=== PATIENT | male | born 1945 | race Caucasian/White ===

== ENCOUNTER → 2021-11-20 14:44 | Outpatient (BNVA) | payer BC, SELFPAY | PROVIDERS: PCP Internal Medicine; Visit Provider Internal Medicine | DX: Z85.46 Personal history of malignant neoplasm of prostate (principal); E78.00 Pure hypercholesterolemia, unspecified | CPT/HCPCS: 80061; 83036; 84153; 84443; 85651; 86140 ==

== ENCOUNTER → 2021-11-28 16:57 | Outpatient (BNVA) | payer BC, SELFPAY | PROVIDERS: PCP Internal Medicine; Visit Provider Internal Medicine | DX: E78.00 Pure hypercholesterolemia, unspecified (principal); Z85.46 Personal history of malignant neoplasm of prostate; R42 Dizziness and giddiness; E11.9 Type 2 diabetes mellitus without complications; M79.10 Myalgia, unspecified site | CPT/HCPCS: 85651; 86140 ==

== ENCOUNTER → 2022-05-13 10:40 | Outpatient (BNVA) | payer MEDICARE, SELFPAY | PROVIDERS: PCP Internal Medicine; Visit Provider Registered Nurse Neonatal Intensive Care | DX: M79.10 Myalgia, unspecified site (principal); M25.511 Pain in right shoulder | CPT/HCPCS: 73030 ==

== ENCOUNTER → 2022-06-02 16:24 | Outpatient (BNVA) | payer MEDICARE, SELFPAY | PROVIDERS: PCP Internal Medicine; Visit Provider Internal Medicine | DX: F41.9 Anxiety disorder, unspecified (principal); M79.10 Myalgia, unspecified site; Z85.46 Personal history of malignant neoplasm of prostate; M10.9 Gout, unspecified; E11.9 Type 2 diabetes mellitus without complications; M75.91 Shoulder lesion, unspecified, right shoulder | CPT/HCPCS: 84153 ==

== ENCOUNTER 2022-10-08 12:54 | Outpatient (CLI) | payer OTHER, SELFPAY ==
--- NOTE | 2022-10-08 13:14 | USCV_ITS ---
Juan Miguel Quinteros Age: 76 Gender: M : 1945 Exam Date: 10/08/2022 13:56 Ordering Phys: Romulo Butler XX Technologist: ZE Exam [place] [facility] [place] Indication: MURMUR BP: 146 / 86 HR: 48 Rhythm: Sinus Technical Quality: Adequate MEASUREMENTS (Male / Female) Normal Values 2D ECHO LVOT Diameter 2.0 cm LV Ejection Fraction MOD 2C 51.2 % LV Ejection Fraction 2C AL 50.1 % LA Diameter 4.7 cm LA Width 4.2 cm LA Height 5.8 cm RA Width 3.9 cm RA Height 5.0 cm Aorta at Sinotubular Diameter 3.1 cm IVC Diameter 1.6 cm M-MODE Aortic Annulus Diameter 3.3 cm LA Ao Ratio MM 1.5 MV E Point Septal Separation 0.9 cm DOPPLER AV Peak Velocity 239.3 cm/s LVOT Peak Velocity 86.0 cm/s AV Area Cont Eq vti 1.2 cm squared AV Area Cont Eq pk 1.1 cm squared MV Peak Velocity 119.0 cm/s MV Area PHT 2.3 cm squared Mitral E to A Ratio 0.7 MV E' Velocity 42.6 cm/s Mitral E to MV E' Ratio 12.7 Mitral E to LV E' Lateral Ratio 12.2 Mitral E to LV E' Septal Ratio 13.1 TR Peak Velocity 194.3 cm/s TR Peak Gradient 15.1 mmHg TR Mean Velocity 150.4 cm/s TR Mean Gradient 9.6 mmHg TR Velocity Time Integral 58.9 cm TV Peak E Velocity 41.0 cm/s Right Atrial Pressure 3.0 mmHg Pulmonary Artery Systolic Pressu 18.1 mmHg PV Peak Velocity 120.0 cm/s RV Acceleration Time 0.2 s RV Ejection Time 0.3 s RV AcT/ET 0.6 FINDINGS Left Ventricle Left ventricle is normal in size. LV systolic function is normal with EF of 50 to 55%. No regional wall motion abnormalities are seen. Grade 1 diastolic dysfunction Right Ventricle Normal in size and function Right Atrium Normal in size Left Atrium Dilated Mitral Valve Structurally normal mitral valve. Trace mitral regurgitation. Aortic Valve Aortic valve is thickened. Mild aortic regurgitation. Mild aortic stenosis with aortic valve area of 1.15 cm squared with mean gradient of 13.6 mmHg. Tricuspid Valve Mild tricuspid regurgitation. Pulmonary artery systolic pressure is normal. Pulmonic Valve Not well-visualized Pericardium Normal Aorta Normal in size IVC Appears to be normal CONCLUSIONS LV systolic function is normal with EF 50 to 55% Grade 1 diastolic dysfunction Left atrial dilation Trace mitral regurgitation Aortic valve is thickened. Mild aortic regurgitation Mild aortic stenosis with aortic valve area of 1.15 cm squared and mean gradient of 13.6 mmHg. Mild tricuspid regurgitation No comparison studies are with Bobby Padilla MD (Electronically Signed) Final Date: 11 October 2022 20:35 S
== END 2022-10-08 12:55 | disposition home or self-care (01) ==
LOC: RAD 13:03
PROVIDERS: PCP Internal Medicine; Visit Provider Family Medicine
DX: I25.10 Atherosclerotic heart disease of native coronary artery without angina pectoris (principal); R01.1 Cardiac murmur, unspecified
CPT/HCPCS: 93306

== ENCOUNTER 2024-02-12 13:39 | Emergency (ER) | payer MEDICARE, SELFPAY ==
[2024-02-12 13:46] VITALS: BP 146/94; PULSE 93; RESP 14; TEMP 37; O2SAT 96
--- NOTE | 2024-02-12 13:57 | ECG_ITS ---
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 Measurements Intervals [place] Rate: 84 P: -6 NH: 152 QRS: -28 QRSD: 104 T: 60 QT: 363 QTc: 429 Interpretive Statements SINUS RHYTHM MODERATE VOLTAGE CRITERIA FOR LVH, CONSIDER NORMAL VARIANT [MEETS CRITERIA IN ONE OF: R(aVL), S(V1), R(V5), R(V5/V6)+S(V1)] INFERIOR MYOCARDIAL INFARCTION , PROBABLY OLD [40+ ms Q WAVE AND/OR ST/T ABNORMALITY IN II/aVF] No previous ECG available for comparison Electronically Signed On 02-12-2024 20:25:44 CDT by Bobby Padilla M.D. [id number]
--- NOTE | 2024-02-12 13:57 | XRR_ITS ---
PROCEDURE INFORMATION: Exam: XR Chest Exam date and time: 02/12/2024 2:28 PM Age: 78 years old Clinical indication: Other: AMS; Additional info: Psych TECHNIQUE: Imaging protocol: Radiologic exam of the chest. Views: 1 view. COMPARISON: CR XR shoulder RT min 2V* [id number] 05/13/2022 10:45 AM FINDINGS: Lungs: No focal consolidation. Pleural spaces: No pleural effusion. No pneumothorax. Heart/Mediastinum: No cardiomegaly. Bones/joints: No acute findings. XR/XR chest 1V portable [id number] IMPRESSION: No acute findings.
--- NOTE | 2024-02-12 14:16 | ED.C_ITS ---
HPI - Psych 2 General: Chief Complaint: Psychiatric Symptoms Stated Complaint: mhe Time Seen by Provider: 02/12/24 13:45 Source: patient and police Limitations: no limitations History of Present Illness: 78-year-old male is brought in by police under 96-hour hold. Per police patient had drove off from home yesterday and got lost and fell asleep at a stoplight. He had some 6 signs of possible dementia and some confusion at times. Patient here now was awake alert he answers all my questions appropriately knows the year he knows the president he states he does have some memory loss and confusion at times he denies any suicidal or homicidal thoughts. Associated symptoms: Deny depression Review of Systems 2 Const: Denies: fever(s), chills, body aches or change in appetite ENMT: Denies: throat pain or dental pain Card: Denies: chest pain Resp: Denies: dyspnea GI: Denies: abdominal pain, nausea, vomiting or diarrhea Musc: Denies: neck pain or back pain Skin/Breast: Denies: rash Neuro: Reports: confusion; Denies: headache(s) Psych: Denies: depression PFSH ED 2 PFSH: Medical History Mild aortic stenosis Carotid stenosis CAD (coronary artery disease) High cholesterol HTN (hypertension) with goal to be determined H/O prostate cancer Diabetes type 2, controlled Surgical History H/O cardiac catheterization WITH TWO STENTS Social History Smoking and tobacco/nicotine status: former use of tobacco/nicotine Physical Exam 2 Const: COMMON NORMALS: no acute distress, patient oriented x3 and healthy appearing HENMT: COMMON NORMALS: normocephalic and atraumatic HEAD & SCALP: n ormocephalic and atraumatic Neck/C-Spine: COMMON NORMALS: full ROM and supple Chest: COMMONS NORMALS: normal inspection of the chest and normal palpation of entire chest wall Resp: COMMON NORMALS: normal respiratory effort, No retractions, No use of accessory muscles and clear to auscultation bilaterally AUSCULTATION: clear to auscultation bilaterally Cardio: COMMON NORMALS: regular rate, regular rhythm and No murmurs present (Cardio) RATE: regular rate RHYTHM: regular rhythm GI: COMMON NORMALS: Normal to inspection, nondistended, normoactive bowel sounds present, Soft to palpation, non-tender and no masses PALPATION: Yes Soft to palpation Extremity: COMMON NORMALS: normal to inspection and full ROM Neuro: COMMON NORMALS: patient oriented x3, moves all extremities and no focal motor deficits Psych: COMMON NORMALS: mental status grossly normal Skin: COMMON NORMALS: no rashes or lesions noted and no wounds GENERAL SKIN EXAM: no rashes or lesions noted Course 2 Vital Signs: Vital signs: Vital Signs Temperature 98.6 F 02/12/24 13:46 Pulse Rate 93 02/12/24 13:46 Respiratory Rate 14 02/12/24 13:46 Blood Pressure 146/94 02/12/24 13:46 Pulse Oximetry 96 02/12/24 13:46 Oxygen Delivery Me thod Room Air 02/12/24 13:46 MDM - Psych Medical Decision Making Patient presented here on a 6-hour hold hold family is concerned with him being confused at times while driving he does admit that he gets lost at times patient is completely oriented here answering all my questions appropriately denies SI or HI is no signs acute psychosis I had him evaluated by psychiatrist Dr. Jones who also agrees that he does not meet inpatient criteria did resend the 96 and will discharge she is follow-up with PCP return if worsening. Medical Records I reviewed the patient's medical records. Lab Data I reviewed the patient's lab results. 02/12/24 14:48 02/12/24 14:48 Radiology Impressions Chest X-Ray 02/12/24 13:57 IMPRESSION: No acute findings. Laboratory Results WBC 6.99 10^3/uL (3.29-11.43) 02/12/24 14:48 RBC 4.46 10^6/uL (3.85-5.65) 02/12/24 14:48 Hgb 14.00 g/dL (11.27-16.99) 02/12/24 14:48 Hct 43.3 % (37-53) 02/12/24 14:48 MCV 97.1 fl (82-101) 02/12/24 14:48 MCH 31.4 pg (27-33) 02/12/24 14:48 MCHC 32.3 g/dL (30-55) 02/12/24 14:48 RDW 12.6 % (12.1-15.1) 02/12/24 14:48 Plt Count 175 10^3/cmm (157-399) 02/12/24 14:48 MPV 9.6 fL (7.4-10.4) 02/12/24 14:48 Neut % (Auto) 72.8 % 02/12/24 14:48 Lymph % (Auto) 15.9 % 02/12/24 14:48 [place] % (Auto) 9.2 % 02/12/24 14:48 Eos % (Auto) 1.7 % 02/12/24 14:48 Baso % (Auto) 0.3 % 02/12/24 14:48 Neut # (Auto) 5.09 10^3/uL (1.8-7.7) 02/12/24 14:48 Lymph # (Auto) 1.1 10^3/uL (0.8-4.8) 02/12/24 14:48 [place] # (Auto) 0.6 10^3/uL (0.2-0.9) 02/12/24 14:48 Eos # (Auto) 0.1 10^3/uL (0.0-0.8) 02/12/24 14:48 Baso # (Auto) 0.0 10^3/uL (0.0-0.1) 02/12/24 14:48 Nucleated RBC % (auto) 0 % 02/12/24 14:48 Nucleated RBCs # 0.0 /100WBC 02/12/24 14:48 Sodium 141 mmol/L (136-145) 02/12/24 14:48 Potassium 4.1 mmol/L (3.5-5.1) 02/12/24 14:48 Chloride 107 mmol/L (98-107) 02/12/24 14:48 Carbon Dioxide 24 mmol/L (22-29) 02/12/24 14:48 Anion Gap 14.1 (5-19) 02/12/24 14:48 BUN 24 mg/dL (8-23) H 02/12/24 14:48 Creatinine 1.1 mg/dL (0.7-1.2) 02/12/24 14:48 GFR Calculation Not Reportable 02/12/24 14:48 Glucose 115 mg/dL (65-115) 02/12/24 14:48 Calculated Osmolality 297 mOsm/kg (285-295) H 02/12/24 14:48 Calcium 8.8 mg/dL (8.5-10.5) 02/12/24 14:48 Total Bilirubin 0.9 mg/dL (0.15-1.2) 02/12/24 14:48 AST 17 U/L (0-40) 02/12/24 14:48 ALT 13 U/L (0-41) 02/12/24 14:48 Alkaline Phosphatase 64 U/L (40-130) 02/12/24 14:48 Total Protein 6.5 g/dL (6.6-8.7) L 02/12/24 14:48 Albumin 4.1 g/dL (3.5-5.2) 02/12/24 14:48 Globulin 2.4 g/dL (1.3-4.6) 02/12/24 14:48 TSH 1.08 uIU/mL (0.27-4.20) 02/12/24 14:48 Urine Color Yellow (Yellow) 02/12/24 14:35 Urine Appearance Clear (CLEAR) 02/12/24 14:35 Urine pH 5 (5-7) 02/12/24 14:35 Ur Specific [place] 1.020 (1.005-1.030) 02/12/24 14:35 Urine Protein Neg (Negative) 02/12/24 14:35 Urine Glucose (UA) Norm (Normal) 02/12/24 14:35 Urine Ketones 1+ (Negative) H 02/12/24 14:35 Urine Blood Neg (Negative) 02/12/24 14:35 Urine Nitrate Negative (Negative) 02/12/24 14:35 Urine Bilirubin Neg (Negative) 02/12/24 14:35 Urine Urobilinogen Norm mg/dL (Negative) 02/12/24 14:35 Ur Leukocyte Esterase Negative (Negative) 02/12/24 14:35 Salicylates < 0.3 mg/dL (3-10) L 02/12/24 14:48 Urine Opiates Screen Negative ng/mL (Negative) 02/12/24 14:35 Acetaminophen < 5.0 ug/mL (10-30) L 02/12/24 14:48 Ur Barbiturates Screen Negative ng/mL (Negative) 02/12/24 14:35 Ur Phencyclidine Scrn Negative ng/mL (Negative) 02/12/24 14:35 Ur Amphetamines Screen Negative ng/mL (Negative) 02/12/24 14:35 U Benzodiazepines Scrn Negative ng/mL (Negative) 02/12/24 14:35 Urine Cocaine Screen Negative ng/mL (Negative) 02/12/24 14:35 U Marijuana (THC) Screen Negative ng/mL (Negative) 02/12/24 14:35 Ethyl Alcohol < 10 mg/dL (0-10) 02/12/24 14:48 Influenza Type A Ag negative (Negative) 02/12/24 15:10 Influenza Type B Ag negative (Negative) 02/12/24 15:10 RSV Antigen Negative (Negative) 02/12/24 15:10 SARS-CoV-2 Ag (Rapid) negative (Negative) 02/12/24 15:10 No radiology studies performed this visit Discharge Plan Discharge Patient Disposition: Home Clinical Impression: Confusion Condition: Stable Prescriptions: No Action allopurinol 100 mg tablet 100 mg PO DAILY Qty: 90 3RF hempvana topical celecoxib 200 mg capsule 200 mg PO BID Qty: 60 3RF losartan 25 mg tablet 100 mg PO DAILY Discharge Orders: Discharge ED (Routine); Ordered 02/12/24 Ordered By: Tia Newell Discharge Diet: Advance as tolerated Discharge Activity: Resume usual activity Patient Instructions: Confusion Activity Restrictions/Additional Instructions: follow up with pcp Coding Level of Care Code ED Supervisor Of Instruction for Julio Calderon
[2024-02-12 14:53] LABS: Basophils % 0.3 %; Eosinophils # 0.1 10^3/uL (0.0-0.8); Eosinophils % 1.7 %; Hematocrit 43.3 % (37-53); Lymphocytes # 1.1 10^3/uL (0.8-4.8); Lymphocytes % 15.9 %; Mean Corpuscular HGB Conc 32.3 g/dL (30-55); Mean Corpuscular Hemoglobin 31.4 pg (27-33); Mean Corpuscular Volume 97.1 fl (82-101); Mean Platelet Volume 9.6 fL (7.4-10.4); Monocytes # 0.6 10^3/uL (0.2-0.9); Monocytes % 9.2 %; Neutrophils # 5.09 10^3/uL (1.8-7.7); Neutrophils % 72.8 %; Nucleated Red Blood Cells % 0 %; Platelet Count 175 10^3/cmm (157-399); Red Blood Count 4.46 10^6/uL (3.85-5.65); Red Cell Distribution Width 12.6 % (12.1-15.1); White Blood Count 6.99 10^3/uL (3.29-11.43)
[2024-02-12 14:58] LABS: Add Urine Microscopic? NO; Charge for UA Resulting for Rev
[2024-02-12 15:16] LABS: Bilirubin Urine Neg (Negative); Blood Urine Neg (Negative); Glucose Urine UA Norm (Normal); Ketones Urine 1+ (Negative); Leukocyte Esterase Urine Negative (Negative); Nitrate Urine Negative (Negative); Protein Urine Neg (Negative); Urine Appearance Clear (CLEAR); Urine Color Yellow (Yellow); Urobilinogen Urine Norm (Negative); pH Urine 5 (5-7)
[2024-02-12 15:17] LABS: Amphetamines Screen Urine Negative (Negative); Barbiturates Screen Urine Negative (Negative); Benzodiazepines Screen Urine Negative (Negative); Cocaine Screen Urine Negative (Negative); Opiate Screen Urine Negative (Negative); PCP Screen Urine Negative (Negative); THC Screen Urine Negative (Negative)
[2024-02-12 15:25] LABS: Acetaminophen < 5.0 ug/mL (10-30); Alanine Aminotransferase 13 U/L (0-41); Albumin Level 4.1 g/dL (3.5-5.2); Alcohol Level < 10 mg/dL (0-10); Alkaline Phosphatase 64 U/L (40-130); Anion Gap 14.1 (5-19); Aspartate Amino Transferase 17 U/L (0-40); Blood Urea Nitrogen 24 mg/dL (8-23); Calcium 8.8 mg/dL (8.5-10.5); Carbon Dioxide 24 mmol/L (22-29); Chloride 107 mmol/L (98-107); Globulin 2.4 g/dL (1.3-4.6); Glucose 115 mg/dL (65-115); Osmolality Calculated 297 mOsm/kg (285-295); Potassium 4.1 mmol/L (3.5-5.1); Salicylate < 0.3 mg/dL (3-10); Sodium 141 mmol/L (136-145); Thyroid Stimulating Hormone 1.08 uIU/mL (0.27-4.20); Total Bilirubin 0.9 mg/dL (0.15-1.2); Total Protein 6.5 g/dL (6.6-8.7)
[2024-02-12 15:35] LABS: Influenza A by IFA negative (Negative); Influenza B by IFA negative (Negative); SARS Covid-2 Antigen negative (Negative)
[2024-02-12 15:40] LABS: RSV Transfer Patient (ED) Negative (Negative)
--- NOTE | 2024-02-12 17:00 | P.NPUCON_ITS ---
Psych Consult HPI History of Present Illness Juan Miguel De La O is a 78 year old male Meds Home Medications and Allergies Home Medications Medication Instructions Recorded Confirmed Last Taken Type allopurinol 100 mg tablet 100 mg PO DAILY #90 tabs 11/20/21 08/07/23 Unknown Rx hempvana topical 05/01/22 08/07/23 Unknown History celecoxib 200 mg capsule 200 mg PO BID #60 caps 06/02/22 08/07/23 Unknown Rx losartan 25 mg tablet 100 mg PO DAILY 01/28/23 08/07/23 Unknown History Allergies Allergy/AdvReac Type Severity Reaction Status Date / Time Sulfa (Sulfonamide Allergy sulfa Verified 02/12/24 13:52 Antibiotics) PFSH NPU 2 PFSH: Medical History Mild aortic stenosis Carotid stenosis CAD (coronary artery disease) High cholesterol HTN (hypertension) with goal to be determined H/O prostate cancer Diabetes type 2, controlled Surgical History H/O cardiac catheterization WITH TWO STENTS Social History Smoking and tobacco/nicotine status: former use of tobacco/nicotine Vitals/I&O/Wt Last Vital Signs Temp 98.6 F 02/12/24 13:46 Pulse 93 02/12/24 13:46 Resp 14 02/12/24 13:46 BP 146/94 02/12/24 13:46 Pulse Ox 96 02/12/24 13:46 O2 Del Method Room Air 02/12/24 13:46 Weight last 48 hrs Weight 88.451 kg Data NPU 02/12/24 14:48 02/12/24 14:48 Attestations NPU 2 Medical Necessity Statement*: N/A. See primary team note for medical necessity but agree with discharge to home. Coding Level of Care Code Acute Code for Julio Calderon
[2024-02-12 17:56] VITALS: RESP 15; O2SAT 99
== END 2024-02-12 18:04 | disposition home or self-care (01) ==
PROVIDERS: Emergency Provider Emergency Medicine
DX: R41.0 Disorientation, unspecified (principal); Z11.52 Encounter for screening for COVID-19; I25.10 Atherosclerotic heart disease of native coronary artery without angina pectoris; I10 Essential (primary) hypertension; E11.9 Type 2 diabetes mellitus without complications; Z85.46 Personal history of malignant neoplasm of prostate; Z87.891 Personal history of nicotine dependence
CPT/HCPCS: 36415; 71045; 80053; 80306; 80307; 81003; 84443; 85025; 87426; 87804; 87899; 93005; 99285

== ENCOUNTER → 2024-03-10 10:07 | Outpatient (BNVA) | payer MEDICARE, SELFPAY | PROVIDERS: PCP Family Medicine; Visit Provider Internal Medicine Cardiovascular Disease | DX: I10 Essential (primary) hypertension (principal); Z98.890 Other specified postprocedural states; E78.00 Pure hypercholesterolemia, unspecified; I25.10 Atherosclerotic heart disease of native coronary artery without angina pectoris; I65.29 Occlusion and stenosis of unspecified carotid artery; I35.0 Nonrheumatic aortic (valve) stenosis; E11.9 Type 2 diabetes mellitus without complications; Z87.891 Personal history of nicotine dependence | CPT/HCPCS: 99213 ==